=== PATIENT | female | born 1935 | race Two or more races ===

== ENCOUNTER 2017-08-03 11:49 | Emergency (ER) | payer MEDICARE ==
[~2017-08-03] VITALS: Ht 160 cm; Wt 54.4 kg
[2017-08-03] MEDS ORDERED: fentaNYL PF VIAL 100 MCG/2 ML VIAL IV PRN (12:15)
[2017-08-03 12:59] LABS: BASO # 0.1 x10^3/uL (0.0-0.2); BASO % 1 % (0-3); EOS % 0 % (0-3); HEMOGLOBIN 12.8 g/dL (12.0-15.5); LYMPH # 0.9 x10^3/uL (1.0-4.8); LYMPH % 11 % (24-48); MEAN CORPUSCULAR HEMOGLOBIN 30 pg (25-35); MEAN CORPUSCULAR HGB CONC 34 g/dL (31-37); MEAN CORPUSCULAR VOLUME 90 fL (79-100); MONO % 4 % (0-9); NEUT % 83 % (31-73); PLATELET COUNT 210 x10^3/uL (140-400); RED BLOOD COUNT 4.24 x10^6/uL (3.50-5.40); RED CELL DISTRIBUTION WIDTH 13.3 % (11.5-14.5); WHITE BLOOD COUNT 8.4 x10^3/uL (4.0-11.0)
[2017-08-03] MEDS ORDERED: CONTRAST GIVEN MC PRN (13:00)
[2017-08-03] MEDS ORDERED: IOHEXOL 300 MG/ML 75 ML VIAL IV ONE (13:00)
[2017-08-03 13:16] LABS: ALBUMIN 3.9 g/dL (3.4-5.0); DIRECT BILIRUBIN 0.2 mg/dL (0.0-0.2); TOTAL BILIRUBIN 0.7 mg/dL (0.2-1.0); TOTAL PROTEIN 7.4 g/dL (6.4-8.2)
--- NOTE | 2017-08-03 13:54 | RAD ---
CT abdominal/pelvis Indication: Abdominal pain, weakness and back pains Technique: CT abdomen/pelvis with 75 mL of Omnipaque 300 IV contrast with multiplanar reformats. Comparison: None Findings: Heart is moderately enlarged in size. Coronary artery and mitral annular calcifications noted. No pericardial or pleural effusion. Liver is normal in morphology without focal lesion. Spleen within normal limits. Gallstones. No pericholecystic fluid or abnormal gallbladder wall thickening. Pancreas within normal limits. Adrenal glands show no nodularity. No hydronephrosis. 7 mm cortically based low attenuating lesion is seen in the right kidney (series 2 image 36). Shotty retroperitoneal and pelvic lymph nodes. No bowel obstruction. No bowel thickening or enhancement. Appendix is normal. Uterus is visualized and is anteverted. Bilateral ovaries within normal limits. There is increased parametrial vascular collaterals with prominent bilateral gonadal veins. No free pelvic fluid. Bladder within normal limits. Fatty atrophy of the left gluteal musculature. Multilevel degenerative changes in the spine. 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 Scattered atherosclerotic disease of the abdominal aorta and bilateral proximal common iliac arteries. Impression: 1. No acute findings to explain patient's symptoms. 2. Small right renal lesion (7 mm) atypical for simple cyst. This may represent minimally comminuted cyst. However, small focus of renal cell carcinoma not ruled out. 3. Increased parametrial collateral circulation. Correlate for pelvic congestion syndrome. 4. Cholelithiasis without acute cholecystitis. PQRS Compliance Statement: One or more of the following individualized dose reduction techniques were utilized for this examination: 1. Automated exposure control 2. Adjustment of the mA and/or kV according to patient size 3. Use of iterative reconstruction technique
[2017-08-03 14:00] VITALS: BP 136/72
--- NOTE | 2017-08-03 14:25 | PHYS DOC ---
Past Medical History Past Medical History: Anemia, Hypertension, Hypothyroid, Other Additional Past Medical Histor: Heart murmur,Osteoarthritis,Aortic Valve disorder,Gastritis. Past Surgical History: No Surgical History Alcohol Use: None Drug Use: None Adult General Chief Complaint Chief Complaint: abdominal pain HPI HPI Patient is a 81 year old female who presents with abdominal pain. She's had intermittent abdominal pain since this morning, crampy in the bilateral upper quadrants. She also had 2 loose stools earlier today. Patient states her pain is controlled at this time but would like some pain medication, no nausea or vomiting reported. No prior abdominal surgeries. Denies any fevers. Review of Systems Review of Systems Constitutional: Denies fever or chills [] Eyes: Denies change in visual acuity, redness, or eye pain [] HENT: Denies nasal congestion or sore throat [] Respiratory: Denies cough or shortness of breath [] Cardiovascular: Denies chest pain GI: per history of present illness : Denies dysuria or hematuria [] Musculoskeletal: Denies back pain or joint pain [] Integument: Denies rash or skin lesions [] Neurologic: Denies headache, focal weakness or sensory changes [] Current Medications Current Medications Current Medications Medications (Trade) Dose Ordered Sig/Shailesh Start Time Stop Time Status Last Admin Dose Admin Fentanyl Citrate (Fentanyl 2ml Vial) 25 mcg PRN Q15MIN PRN 08/03/17 12:15 08/04/17 12:14 Info (Do NOT chart on this entry -- for MONITORING) 1 each PRN DAILY PRN 08/03/17 13:00 08/05/17 12:59 Iohexol (Omnipaque 300 Mg/ml) 75 ml 1X ONCE 08/03/17 13:00 08/03/17 13:01 DC Allergies Allergies Allergies Coded Allergies Type Severity Reaction Last Updated Verified No Known Drug Allergies 08/03/17 No Physical Exam Physical Exam Constitutional: Well developed, well nourished, no acute distress, non-toxic appearance. [] HENT: Normocephalic, atraumatic, bilateral external ears normal, oropharynx moist, no oral exudates, nose normal. [] Eyes: PERRLA, EOMI, conjunctiva normal, no discharge. [] Neck: Normal range of motion, no tenderness, supple, no stridor. [] Cardiovascular:Heart rate regular rhythm, no murmur [] Lungs & Thorax: Bilateral breath sounds clear to auscultation [] Abdomen: Bowel sounds normal, soft, nondistended, tender to palpation in the right upper quadrant, no guarding or peritoneal signs, negative Valdez's Skin: Warm, dry, no erythema, no rash. [] Back: No tenderness, no CVA tenderness. [] Extremities: No tenderness, no cyanosis, no clubbing, ROM intact, no edema. [] Neurologic: Alert and oriented X 3, normal motor function, normal sensory function, no focal deficits noted. [] Psychologic: Affect normal, judgement normal, mood normal. [] Current Patient Data Vital Signs Vital Signs Date Time Temp Pulse Resp B/P (MAP) Pulse Ox O2 Delivery O2 Flow Rate FiO2 08/03/17 12:08 98.7 61 18 147/70 (95) 98 Room Air 98.7 Lab Values Laboratory Tests Test 08/03/17 12:40 08/03/17 12:53 White Blood Count 8.4 x10^3/uL (4.0-11.0) Red Blood Count 4.24 x10^6/uL (3.50-5.40) Hemoglobin 12.8 g/dL (12.0-15.5) Hematocrit 38.0 % (36.0-47.0) Mean Corpuscular Volume 90 fL (79-100) Mean Corpuscular Hemoglobin 30 pg (25-35) Mean Corpuscular Hemoglobin Concent 34 g/dL (31-37) Red Cell Distribution Width 13.3 % (11.5-14.5) Platelet Count 210 x10^3/uL (140-400) Neutrophils (%) (Auto) 83 % (31-73) H Lymphocytes (%) (Auto) 11 % (24-48) L Monocytes (%) (Auto) 4 % (0-9) Eosinophils (%) (Auto) 0 % (0-3) Basophils (%) (Auto) 1 % (0-3) Neutrophils # (Auto) 7.0 x10^3uL (1.8-7.7) Lymphocytes # (Auto) 0.9 x10^3/uL (1.0-4.8) L Monocytes # (Auto) 0.3 x10^3/uL (0.0-1.1) Eosinophils # (Auto) 0.0 x10^3/uL (0.0-0.7) Basophils # (Auto) 0.1 x10^3/uL (0.0-0.2) Total Bilirubin 0.7 mg/dL (0.2-1.0) Direct Bilirubin 0.2 mg/dL (0.0-0.2) Aspartate Amino Transferase (AST) 18 U/L (15-37) Alanine Aminotransferase (ALT) 25 U/L (14-59) Alkaline Phosphatase 82 U/L (46-116) Total Protein 7.4 g/dL (6.4-8.2) Albumin 3.9 g/dL (3.4-5.0) Lipase 180 U/L (73-393) POC Hemoglobin 12.2 g/dL (12-15) POC Hematocrit 36 % (36-40) POC Sodium 136 mmol/L (135-145) POC Potassium 4.0 mmol/L (3.5-5.0) POC Chloride 100 mmol/L (98-110) POC Total CO2 26 mmol/L (23-32) Anion Gap 16 mmol/L (6-14) H POC Blood Urea Nitrogen 15 mg/dL (8-26) POC Creatinine 0.9 mg/dL (0.5-1.4) Glucose Level 103 mg/dL (70-99) H POC Ionized Calcium (Mathew) 1.21 mmol/L (1.13-1.32) Laboratory Tests 08/03/17 12:40 Laboratory Tests 08/03/17 12:53 EKG EKG EKG performed from the doctor's office shows 60 bpm, sinus, normal axis, normal intervals, no ST elevation or depression appreciated, nonischemic T waves Radiology/Procedures Radiology/Procedures [] CT abdominal/pelvis Indication: Abdominal pain, weakness and back pains Technique: CT abdomen/pelvis with 75 mL of Omnipaque 300 IV contrast with multiplanar reformats. Comparison: None Findings: Heart is moderately enlarged in size. Coronary artery and mitral annular calcifications noted. No pericardial or pleural effusion. Liver is normal in morphology without focal lesion. Spleen within normal limits. Gallstones. No pericholecystic fluid or abnormal gallbladder wall thickening. Pancreas within normal limits. Adrenal glands show no nodularity. No hydronephrosis. 7 mm cortically based low attenuating lesion is seen in the right kidney (series 2 image 36). Shotty retroperitoneal and pelvic lymph nodes. No bowel obstruction. No bowel thickening or enhancement. Appendix is normal. Uterus is visualized and is anteverted. Bilateral ovaries within normal limits. There is increased parametrial vascular collaterals with prominent bilateral gonadal veins. No free pelvic fluid. Bladder within normal limits. Fatty atrophy of the left gluteal musculature. Multilevel degenerative changes in the spine. 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 Scattered atherosclerotic disease of the abdominal aorta and bilateral proximal common iliac arteries. Impression: 1. No acute findings to explain patient's symptoms. 2. Small right renal lesion (7 mm) atypical for simple cyst. This may represent minimally comminuted cyst. However, small focus of renal cell carcinoma not ruled out. 3. Increased parametrial collateral circulation. Correlate for pelvic congestion syndrome. 4. Cholelithiasis without acute cholecystitis. [] Course & Med Decision Making Course & Med Decision Making Pertinent Labs and Imaging studies reviewed. (See chart for details) Labs ordered, CT abdomen and pelvis ordered, patient given IV fentanyl and symptoms well controlled. Patient's CT shows cholelithiasis without cholecystitis. She's feeling well and feels comfortable going home. Dragon Disclaimer Dragon Disclaimer This electronic medical record was generated, in whole or in part, using a voice recognition dictation system. Departure Departure Impression: Primary Impression: Cholelithiasis Disposition: 01 HOME, SELF-CARE Condition: IMPROVED Referrals: LILI VASQUEZ MD Please follow-up with your doctor to ensure your symptoms are well controlled. Patient Instructions: Cholelithiasis, [id number] YULISA ELIZALDE MD Aug 03, 2017 14:24
== END 2017-08-03 14:06 | disposition home or self-care (01) ==
LOC: ER 11:49
DX: K80.20 Calculus of gallbladder without cholecystitis without obstruction (principal); I10 Essential (primary) hypertension; E03.9 Hypothyroidism, unspecified; Z86.2 Personal history of diseases of the blood and blood-forming organs and certain disorders involving the immune mechanism; Z87.19 Personal history of other diseases of the digestive system
CPT/HCPCS: 36415; 74177; 80047; 80076; 83690; 85025; 99285-25